=== PATIENT | female | born 1975 | race American Indian/Alaskan Native ===

== ENCOUNTER 2017-12-26 14:09 | Outpatient (CLI) | payer MEDICAID ==
--- NOTE | 2017-12-27 07:23 | Fluoroscopy Report ---
HYSTEROSALPINGOGRAM: History: Essure confirmation. Informed consent was obtained. Standard sterile prep and drape was employed. The catheter tip was subsequently placed within the uterine lumen via cervix. The small balloon on the tip of the catheter was inflated. Retrograde injection opacifies normal appearing uterine lumen. Essure devices are identified bilaterally which occlude the fallopian tubules. The uterine lumen demonstrates no evidence for extrinsic compression or intrinsic mass. 5 fluoroscopic images were captured during this exam. IMPRESSION: Essure devices occlude the bilateral fallopian tubules. Otherwise, normal exam.
== END 2017-12-26 14:10 | disposition home or self-care (01) ==
LOC: FLUORO 14:09
PROVIDERS: ATTEND Obstetrics & Gynecology
DX: N97.1 Female infertility of tubal origin (principal); Z88.5 Allergy status to narcotic agent; Z91.040 Latex allergy status
CPT/HCPCS: 58340; 74740; Q9967

== ENCOUNTER 2021-04-13 18:22 | Emergency (ER) | payer SELFPAY ==
[2021-04-13] MEDS ORDERED: methylPREDNISolone Sod Succinate 125 MG/2 ML INJ IV ONE (18:50)
[2021-04-13] MEDS ORDERED: ALBUTEROL 2.5 MG/3 ML NEBU IH ONE (18:50)
[2021-04-13] MEDS ORDERED: IPRATROPIUM 0.02% NEBU 2.5 ML IH ONE (18:50)
--- NOTE | 2021-04-13 18:53 | Emergency Department Report ---
ED Chest Pain HPI - General Chief Complaint: Chest Pain Stated Complaint: CHEST PAIN,PAIN UNDER RIGHT ARM Time Seen by Provider: 04/13/21 18:49 Source: patient Mode of arrival: Ambulatory Limitations: No Limitations - History of Present Illness Initial Comments: 45-year-old -English female presents to the emergency department with complaint of a few hours of progressively worsening chest pain, shortness of breath, wheezing, coughing. The patient says that it felt like she was having an asthma exacerbation and has been using her inhaler continuously, even in the waiting room, without any relief. She complains of generalized chest discomfort that feels like a tightness, as well as a sharp right-sided chest pain. She denies any fever, lower extremity swelling, nausea, vomiting or diaphoresis. On top of asthma, the patient also has a history of anxiety and depression. She denies any tobacco or illicit drug use. No family history of early cardiac disease or [place]. Recent travel or sick contacts at home. - Related Data Previous Rx's Medication Instructions Recorded Last Taken Type Albuterol Mdi (or & Nicu Only) 2 puff IH QID PRN #8.5 gram 04/13/21 Unknown Rx [ProAir HFA Inhaler] predniSONE [Deltasone] 20 mg PO BID #6 tab 04/13/21 Unknown Rx Allergies Allergy/AdvReac Type Severity Reaction Status Date / Time codeine AdvReac Shortness Unverified 12/26/17 14:09 of Breath Latex, Natural Rubber AdvReac Rash Unverified 12/26/17 14:09 Penicillins AdvReac Unknown Verified 04/13/21 18:53 Heart Score - HEART Score History: Slightly suspicious EKG: Non-specific Age: 45-65 Risk factors: No known risk factors Troponin: < normal limit HEART Score: 2 - EKG Read Time Time EKG Completed: 19:41 EKG Read Time: 19:41 ED Review of Systems ROS: Stated complaint: CHEST PAIN,PAIN UNDER RIGHT ARM Other details as noted in HPI Comment: All other systems reviewed and negative Constitutional: denies: chills, fever Eyes: denies: eye pain, vision change ENT: denies: ear pain, throat pain Respiratory: cough, shortness of breath, wheezing Cardiovascular: chest pain. denies: palpitations Gastrointestinal: denies: abdominal pain, vomiting Genitourinary: denies: dysuria, discharge Musculoskeletal: denies: back pain, arthralgia Skin: denies: rash, lesions Neurological: denies: headache, weakness ED Past Medical Hx - Past Medical History Previous Medical History?: No - Surgical History Past Surgical History?: No - Medications Home Medications: Home Medications Medication Instructions Recorded Confirmed Last Taken Type Albuterol Mdi (or & Nicu Only) 2 puff IH QID PRN #8.5 gram 04/13/21 Unknown Rx [ProAir HFA Inhaler] predniSONE [Deltasone] 20 mg PO BID #6 tab 04/13/21 Unknown Rx ED Physical Exam - General Limitations: No Limitations - Other Other exam information: GENERAL: The patient is well-developed well-nourished. HENT: Normocephalic. Atraumatic. Patient has moist mucous membranes. EYES: Extraocular motions are intact. NECK: Supple. Trachea is midline. CHEST/LUNGS: Mild expiratory wheezing throughout the chest. No tachypnea or accessory muscle use. There is no respiratory distress noted. There is reproducible midsternal to left-sided chest pain without crepitus or deformity. HEART/CARDIOVASCULAR: Regular. There is no tachycardia. There is no murmur. ABDOMEN: Abdomen is soft, nontender. Patient has normal bowel sounds. SKIN: Skin is warm and dry. NEURO: The patient is awake, alert, and oriented. The patient is cooperative. The patient has no focal neurologic deficits. Normal speech. MUSCULOSKELETAL: There is no tenderness or deformity. There is no limitation range of motion. PSYCH: The patient appears anxious. ED Course Vital Signs 04/13/21 04/13/21 04/13/21 18:35 21:01 21:15 Temperature 98.1 F Pulse Rate 70 94 H Respiratory 16 16 Rate Blood Pressure 138/82 Blood Pressure 130/76 [Left] O2 Sat by Pulse 100 98 97 Oximetry 04/13/21 04/13/21 04/13/21 21:31 22:01 22:06 Temperature Pulse Rate 86 Respiratory 16 Rate Blood Pressure 128/82 116/72 Blood Pressure [Left] O2 Sat by Pulse 98 96 97 Oximetry 04/13/21 23:25 Temperature 97.3 F L Pulse Rate 79 Respiratory 18 Rate Blood Pressure Blood Pressure 133/68 [Left] O2 Sat by Pulse 98 Oximetry LUANN score - Luann Score Age > 65: (0) No Aspirin use within the Past 7 Days: (0) No 3 or more CAD Risk Factors: (0) No 2 or more Angina events in past 24 hrs: (1) Yes Known CAD with more than 50% Stenosis: (0) No Elevated Cardiac Markers: (0) No ST Deviation Greater than 0.5mm: (0) No LUANN Score: 1 ED Medical Decision Making - Lab Data Result diagrams: 04/13/21 19:04 04/13/21 19:04 Lab Results 04/13/21 04/13/21 04/13/21 Range/Units 19:04 19:04 19:04 WBC 4.2 L (4.5-11.0) K/mm3 RBC 4.05 (3.65-5.03) M/mm3 Hgb 13.6 (10.1-14.3) gm/dl Hct 39.5 (30.3-42.9) % MCV 98 H (79-97) fl MCH 34 H (28-32) pg MCHC 35 H (30-34) % RDW 13.9 (13.2-15.2) % Plt Count 201 (140-440) K/mm3 Lymph % (Auto) 39.8 H (13.4-35.0) % Bacon % (Auto) 11.7 H (0.0-7.3) % Eos % (Auto) 7.8 H (0.0-4.3) % Baso % (Auto) 0.5 (0.0-1.8) % Lymph # (Auto) 1.7 (1.2-5.4) K/mm3 Bacon # (Auto) 0.5 (0.0-0.8) K/mm3 Eos # (Auto) 0.3 (0.0-0.4) K/mm3 Baso # (Auto) 0.0 (0.0-0.1) K/mm3 Seg Neutrophils % 40.2 (40.0-70.0) % Seg Neutrophils # 1.7 L (1.8-7.7) K/mm3 D-Dimer 302.21 H (0-234) ng/mlDDU Sodium 140 (137-145) mmol/L Potassium 3.9 (3.6-5.0) mmol/L Chloride 108.4 H (98-107) mmol/L Carbon Dioxide 22 (22-30) mmol/L Anion Gap 14 mmol/L BUN 16 (7-17) mg/dL Creatinine 1.0 (0.6-1.2) mg/dL Estimated GFR > 60 ml/min BUN/Creatinine Ratio 16 % Glucose 99 (65-100) mg/dL Calcium 9.2 (8.4-10.2) mg/dL Troponin T < 0.010 (0.00-0.029) ng/mL HCG, Qual (Negative) 04/13/21 04/13/21 Range/Units 19:04 21:22 WBC (4.5-11.0) K/mm3 RBC (3.65-5.03) M/mm3 Hgb (10.1-14.3) gm/dl Hct (30.3-42.9) % MCV (79-97) fl MCH (28-32) pg MCHC (30-34) % RDW (13.2-15.2) % Plt Count (140-440) K/mm3 Lymph % (Auto) (13.4-35.0) % Bacon % (Auto) (0.0-7.3) % Eos % (Auto) (0.0-4.3) % Baso % (Auto) (0.0-1.8) % Lymph # (Auto) (1.2-5.4) K/mm3 Bacon # (Auto) (0.0-0.8) K/mm3 Eos # (Auto) (0.0-0.4) K/mm3 Baso # (Auto) (0.0-0.1) K/mm3 Seg Neutrophils % (40.0-70.0) % Seg Neutrophils # (1.8-7.7) K/mm3 D-Dimer (0-234) ng/mlDDU Sodium (137-145) mmol/L Potassium (3.6-5.0) mmol/L Chloride (98-107) mmol/L Carbon Dioxide (22-30) mmol/L Anion Gap mmol/L BUN (7-17) mg/dL Creatinine (0.6-1.2) mg/dL Estimated GFR ml/min BUN/Creatinine Ratio % Glucose (65-100) mg/dL Calcium (8.4-10.2) mg/dL Troponin T < 0.010 (0.00-0.029) ng/mL HCG, Qual Negative (Negative) - EKG Data -: EKG Interpreted by Me EKG shows normal: sinus rhythm, axis, intervals, QRS complexes (Q waves to the septal leads), ST-T waves Rate: normal - EKG Data When compared to previous EKG there are: previous EKG unavailable Interpretation: other (Sinus rhythm at 72 bpm, normal axis, normal intervals, Q waves to the septal leads. No ST elevation [place]) - Radiology Data Radiology results: report reviewed, image reviewed interpreted by me: Chest x-ray does not show any acute process. There are no pleural effusions, obvious pneumonia and there is no pneumothorax. CTA CHEST WITH CONTRAST INDICATION / CLINICAL INFORMATION: SOB, CP, elevated dimer. TECHNIQUE: Axial CT images were obtained through the chest after injection of IV contrast. 3 plane MIP and/or 3D reconstructions were produced. All CT scans at this location are performed using CT dose reduction for ALARA by means of automated exposure control. COMPARISON: None available. FINDINGS: PULMONARY ARTERIES: Suboptimal IV contrast bolus, and limits evaluation. No pulmonary thromboembolism to the level of the lobar pulmonary arteries. THORACIC AORTA: No significant abnormality. HEART: Mildly enlarged CORONARY ARTERY CALCIFICATION: None. MEDIASTINUM / GURPREET: No significant abnormality. PLEURA: No pleural effusion. No pneumothorax. LUNGS: No acute air space or interstitial disease. ADDITIONAL FINDINGS: None. UPPER ABDOMEN: Small hiatal hernia SKELETAL STRUCTURES: No significant osseous abnormality. IMPRESSION: 1. Suboptimal IV contrast bolus timing limits evaluation for pulmonary thromboembolism. No pulmonary embolism through the level of the lobar pulmonary arteries. 2. No acu te findings. 3. Small hiatal hernia. - Medical Decision Making This patient presents to the emergency department with a complaint of some wheezing, shortness of breath, chest discomfort, coughing that started earlier today. On examination there is mild expiratory wheezing, but the patient does not appear in any respiratory or acute distress. Heart sounds are normal to auscultation. There is some reproducible midsternal to left-sided chest wall tenderness to palpation without crepitus or deformity. EKG did not have any morphology consistent with ST elevation myocardial infarction. Chest x-ray does not show any pneumonia, pleural effusions, pneumothorax, widened mediastinum, or any other acute process. Patient's labs have been mostly unremarkable including CBC, metabolic panel and negative troponins x2. The patient did have an elevated and equivocal D-dimer level. For this reason she had a CT angiography of the chest that did not show any pulmonary embolism or any other acute process. Patient was given breathing treatments with albuterol and Atrovent, Solu-Medrol, and was given a small dose of Ativan given her visible anxiety. She was reevaluated multiple times over multiple hours and both feels and appears improved. Vital signs have been reassuring throughout her ED course. The patient appears safe for discharge home at this time. Her contact information has been sent over to the [facility] [place], and someone from their office should be contacting her shortly for close outpatient follow-up as part of our [facility] low risk chest pain protocol. Critical Care Time: No Critical care attestation.: If time is entered above; I have spent that time in minutes in the direct care of this critically ill patient, excluding procedure time. ED Disposition Clinical Impression: Atypical chest pain, Bronchospasm Disposition: 01 HOME / SELF CARE / HOMELESS Is pt being admited?: No Condition: Stable Instructions: Bronchospasm, Adult, Nonspecific Chest Pain, Adult, Chest Wall Pain Additional Instructions: Please follow-up with your primary care physician in the next few days. I am sending your contact information over to the [facility] [place], and someone from their office should be contacting you shortly for close outpatient. Just in case, I am giving a referral for one of their prison officer, Dr. Acevedo. Return to the emergency department with any worsening of your symptoms, new or concerning symptoms not addressed during this current emergency department visit, or with any acute distress. Prescriptions: predniSONE [Deltasone] 20 mg PO BID #6 tab Albuterol Mdi (or & Nicu Only) [ProAir HFA Inhaler] 2 puff IH QID PRN #8.5 gram PRN Reason: Shortness Of Breath Referrals: ABRAN ACEVEDO MD [Staff Physician] - 2-3 Days PCP, Your [Other] - 2-3 Days Forms: Work/School Release Form(ED) Time of Disposition: 22:09
[2021-04-13 19:36] LABS: Basophils % (Auto) 0.5 % (0.0-1.8); Eosinophils # (Auto) 0.3 K/mm3 (0.0-0.4); Eosinophils % (Auto) 7.8 % (0.0-4.3); Hematocrit 39.5 % (30.3-42.9); Hemoglobin 13.6 gm/dl (10.1-14.3); Lymphocytes # (Auto) 1.7 K/mm3 (1.2-5.4); Lymphocytes % (Auto) 39.8 % (13.4-35.0); Mean Corpuscular HGB Conc 35 % (30-34); Mean Corpuscular Volume 98 fl (79-97); Monocytes # (Auto) 0.5 K/mm3 (0.0-0.8); Monocytes % (Auto) 11.7 % (0.0-7.3); Platelet Count 201 K/mm3 (140-440); Red Blood Count 4.05 M/mm3 (3.65-5.03); Red Cell Distribution Width 13.9 % (13.2-15.2)
[2021-04-13 19:56] LABS: BUN/Creatinine Ratio 16; Blood Urea Nitrogen 16 mg/dL (7-17); Calcium 9.2 mg/dL (8.4-10.2); Hemolysis Index 7
--- NOTE | 2021-04-13 20:17 | XRay Report ---
CHEST PA AND LATERAL VIEWS INDICATION: Cp, SOB. COMPARISON: None. FINDINGS: Support devices: None. Heart: Within normal limits. Lungs/Pleura: No acute pulmonary or pleural findings. IMPRESSION: 1. No acute findings. Signer Name: Yonny Seth MD Signed: 04/13/2021 8:13 PM Workstation Name: [id number]
[2021-04-13] MEDS ORDERED: KETOROLAC 30 MG/1 ML INJ IV ONE (20:35)
[2021-04-13] MEDS ORDERED: LORazepam 2 MG/ML VIAL IV ONE (20:35)
--- NOTE | 2021-04-13 21:12 | Cat Scan Report ---
CTA CHEST WITH CONTRAST INDICATION / CLINICAL INFORMATION: SOB, CP, elevated dimer. TECHNIQUE: Axial CT images were obtained through the chest after injection of IV contrast. 3 plane SC P and/or 3D reconstructions were produced. All CT scans at this location are performed using CT dose reduction for ALARA by means of automated exposure control. COMPARISON: None available. FINDINGS: PULMONARY ARTERIES: Suboptimal IV contrast bolus, and limits evaluation. No pulmonary thromboembolism to the level of the lobar pulmonary arteries. THORACIC AORTA: No significant abnormality. HEART: Mildly enlarged CORONARY ARTERY CALCIFICATION: None. MEDIASTINUM / GURPREET: No significant abnormality. PLEURA: No pleural effusion. No pneumothorax. LUNGS: No acute air space or interstitial disease. ADDITIONAL FINDINGS: None. UPPER ABDOMEN: Small hiatal hernia SKELETAL STRUCTURES: No significant osseous abnormality. IMPRESSION: 1. Suboptimal IV contrast bolus timing limits evaluation for pulmonary thromboembolism. No pulmonary embolism through the level of the lobar pulmonary arteries. 2. No acute findings. 3. Small hiatal hernia. Signer Name: Haseeb Marroquin MD Signed: 04/13/2021 9:07 PM Workstation Name: [id number]
[2021-04-13 23:29] VITALS: BP 133/68
--- NOTE | 2021-04-14 11:01 | Electrocardiograph Report ---
[facility] Test Date: 2021-04-13 Test Time: 19:41:32 Pat Name: MARTÍN WILSON Department: Room: Gender: F Base [employer]: LYNNETTE : 1975 Requested By: DESTINEY NUNES Order Number: [id number] Reading MD: Alex Haley Measurements Intervals [place] Rate: 72 P: 74 WV: 150 QRS: 42 QRSD: 91 T: 35 QT: 391 QTc: 429 Interpretive Statements Sinus rhythm Probable left atrial enlargement Anteroseptal infarct, age indeterminate No previous ECG available for comparison Electronically Signed On 04-14-2021 11:00:56 EDT by Alex Haley
== END 2021-04-13 23:27 | disposition home or self-care (01) ==
LOC: ED 18:22
DX: J98.01 Acute bronchospasm (principal); R07.89 Other chest pain; R06.02 Shortness of breath; R06.2 Wheezing; Z88.5 Allergy status to narcotic agent; Z88.2 Allergy status to sulfonamides; Z91.040 Latex allergy status; Z88.0 Allergy status to penicillin; Z79.899 Other long term (current) drug therapy
CPT/HCPCS: 36415; 71046; 71275; 80048; 84484; 84703; 85025; 85379; 93005; 94640; 96374; 96375; 99285; J1885; J2060; J2930; Q9967